=== PATIENT | male | born 1970 | race Caucasian/White ===

== ENCOUNTER 2021-08-28 01:40 | Day surgery (SDC) | payer OTHER, SELFPAY ==
[2021-07-10 14:13] VITALS: BMI 30.4
--- NOTE | 2021-08-28 07:36 | WPDANESEPPF ---
Anes - Initial Pre Proc Eval Procedure: Operation Date: 08/28/21 10:15 Proposed Procedures p Screening Colonoscopy - Parveen Wasserman MD Date/Time: 08/28/21 07:36 Surgeon: Parveen Wasserman MD Pre Op Diagnosis: neoplasm screening Patient Data Age: 51 Gender: M Height: 1.85 m Weight: 104.5 kg Allergies Allergy/AdvReac Type Severity Reaction Status Date / Time No Known Allergies Allergy Verified 08/28/21 09:27 Home Medications Medication Instructions Recorded Confirmed Type aspirin 325 mg tablet 325 mg PO DAILY 05/20/20 08/28/21 History chlorthalidone 25 mg tablet 25 mg PO DAILY 05/20/20 08/28/21 History nebivolol 10 mg tablet (Bystolic) 10 mg PO DAILY 05/20/20 08/28/21 History ramipril 10 mg capsule 10 mg PO DAILY 05/20/20 08/28/21 History sildenafil 100 mg tablet 100 mg PO DAILY PRN sexual 03/06/21 08/28/21 Rx activity #10 tabs cetirizine 10 mg tablet (Zyrtec) 10 mg PO DAILY PRN Sexual Activity 05/22/21 08/28/21 History Patient hx anesthesia problems: none Family hx anesthesia problems: none Results Review: All pre-operative results and documents have been reviewed as part of the pre-operative evaluation. [facility] Past Medical History Medical History (Updated 08/28/21 @ 07:36 by Gurjit Teixeira DO) Atrial fibrillation BMI greater than 30 Changing skin lesion Erectile dysfunction Essential (primary) hypertension Hypertension LAVELLE (obstructive sleep apnea) Screen for colon cancer Screening for lipid disorders Screening for prostate cancer Skin lesion of face Family History Family History Mother Hypertension Grandparent Cerebrovascular accident Family history of lung cancer Family history of malignant neoplasm of brain Social History Social History Smoking status: Never smoker Alcohol intake: current Drinks per week: 4 Substance use type: does not use Living arrangements: other Additional living arrangements comments: with Spiritual care concerns: No Anes - Eval Final PreProcedure Day of Procedure 08/28/21 07:36 Patient weight: obese Heart: regular rate and rhythm Lungs: clear to auscultation Airway: Mallampati scale class 1 Neurological: alert and oriented Last oral intake: >/= 8 hours ASA classification: III Emergent: no Anesthetic plan: proceed Anesthesia type and monitoring: general GIVS and standard monitoring Results Review: All pre-operative results and documents have been reviewed as part of the pre-operative evaluation. Informed Consent: The patient's anesthetic plan and its attendant risks and benefits were discussed with the patient/family/POA. Questions were solicited and answers provided to the satisfaction of the patient/family/POA.
[2021-08-28 09:29] VITALS: BP 136/90; PULSE 62; RESP 18; TEMP 36.4; O2SAT 98; BMI 31.1
[2021-08-28] MEDS: LACTATED RINGERS 1,000 ML 150 ML IV CONT (09:42)
--- NOTE | 2021-08-28 09:56 | PM.IMHP ---
H&P: HPI History of Present Illness Date/Time: 08/28/21 09:56 Chief Complaint: Neoplasia screening. Narrative: This is a 51-year-old white male patient presents for screening colonoscopy. Patient's current weight appetite and bowel movements are normal. He denies abdominal pain. Patient has had no bleeding. Family history noncontributory. He presents today for neoplasia screening colonoscopy. Review of Systems Review of Systems: Review of systems noncontributory. Patient reports a skin cancer removed from his neck several weeks ago. [facility] Past Medical History Medical History (Updated 08/28/21 @ 07:36 by Gurjit Teixeira DO) Atrial fibrillation BMI greater than 30 Changing skin lesion Erectile dysfunction Essential (primary) hypertension Hypertension LAVELLE (obstructive sleep apnea) Screen for colon cancer Screening for lipid disorders Screening for prostate cancer Skin lesion of face Family History Family History Mother Hypertension Grandparent Cerebrovascular accident Family history of lung cancer Family history of malignant neoplasm of brain Social History Social History Smoking status: Never smoker Alcohol intake: current Drinks per week: 4 Substance use type: does not use Living arrangements: other Additional living arrangements comments: with Spiritual care concerns: No Meds Home Medications and Allergies Home Medications Medication Instructions Recorded Confirmed Type aspirin 325 mg tablet 325 mg PO DAILY 05/20/20 08/28/21 History chlorthalidone 25 mg tablet 25 mg PO DAILY 05/20/20 08/28/21 History nebivolol 10 mg tablet (Bystolic) 10 mg PO DAILY 05/20/20 08/28/21 History ramipril 10 mg capsule 10 mg PO DAILY 05/20/20 08/28/21 History sildenafil 100 mg tablet 100 mg PO DAILY PRN sexual 03/06/21 08/28/21 Rx activity #10 tabs cetirizine 10 mg tablet (Zyrtec) 10 mg PO DAILY PRN Sexual Activity 05/22/21 08/28/21 History Allergies Allergy/AdvReac Type Severity Reaction Status Date / Time No Known Allergies Allergy Verified 08/28/21 09:27 Vital Signs Vital Signs - 24 hr 08/28/21 09:29 Temperature 97.6 F Pulse Rate 62 Respiratory Rate 18 Blood Pressure 136/90 Pulse Oximetry 98 Oxygen Delivery Room Air Exam Narrative: Physical exam reveals patient be alert. Vital signs stable. HEENT exam is unremarkable. Patient is anicteric. Lungs are clear to auscultation and percussion. Heart is without murmur or extra sounds. Abdominal exam bowel sounds are present soft nontender with no organomegaly. Digital external rectal exam is normal. Assessment and Plan Assessment and plan (1) Screen for colon cancer: Code(s): Z12.11 - Encounter for screening for malignant neoplasm of colon Status: Acute Assessment and Plan: Patient presents today for screening colonoscopy. Appears to be at average risk for colon polyps.
[2021-08-28 10:24] VITALS: BP 115/80; PULSE 74; RESP 19; O2SAT 94
[2021-08-28 10:34] VITALS: BP 124/83; PULSE 67; RESP 20; O2SAT 98
[2021-08-28 10:44] VITALS: BP 122/85; PULSE 61; RESP 15; O2SAT 97
== END 2021-08-28 10:54 | disposition home or self-care (01) ==
PROVIDERS: PCP Family Medicine; Visit Provider Internal Medicine Gastroenterology
PROC: 0DJD8ZZ Inspection of Lower Intestinal Tract, Via Natural or Artificial Opening Endoscopic (ICD-10-PCS; CPT 45378; principal; 2021-08-28 10:15)
DX: Z12.11 Encounter for screening for malignant neoplasm of colon (principal); D12.5 Benign neoplasm of sigmoid colon; K64.8 Other hemorrhoids; I48.91 Unspecified atrial fibrillation; I10 Essential (primary) hypertension; G47.33 Obstructive sleep apnea (adult) (pediatric); N52.9 Male erectile dysfunction, unspecified; E66.9 Obesity, unspecified; Z68.31 Body mass index [BMI] 31.0-31.9, adult
CPT/HCPCS: 45385; 88305; J2704; J7120

== ENCOUNTER 2022-11-19 08:08 | Outpatient (CLI) | payer OTHER, SELFPAY ==
[2022-11-19 08:56] LABS: Alanine Aminotransferase 40 U/L (6-50); Cholesterol 160 mg/dL (0-200); Creatine Kinase 105 U/L (55-170); HDL Direct 41 mg/dL; Triglycerides 120 mg/dL (<150)
[2022-11-19 09:07] LABS: LDL Cholesterol Direct 84 mg/dL
== END 2022-11-19 08:09 | disposition home or self-care (01) ==
LOC: ANHLAB 08:09
PROVIDERS: PCP Family Medicine; Visit Provider Nurse Practitioner Family
DX: E78.5 Hyperlipidemia, unspecified (principal)
CPT/HCPCS: 36415; 80061; 82550; 84460

== ENCOUNTER 2023-01-14 01:14 | Day surgery (SDC) | payer OTHER, SELFPAY ==
[2023-01-14] VITALS (8 sets, daily range): BP systolic 98–123; BP diastolic 75–104; PULSE 65–132; RESP 10–17; TEMP 36.5; O2SAT 95–100; BMI 31.0
--- NOTE | 2023-01-14 08:45 | ECG_ITS ---
Rate NV QRSd QT QTc P QRS T Severity 125 0 94 305 441 1 60 No Severity Defined ATRIAL FLUTTER/TACHYCARDIA WITH RAPID VENTRICULAR RESPONSE NONSPECIFIC ST & T-WAVE ABNORMALITY- LAT/HIGH LAT LEADS ABNORMAL ECG NO PREVIOUS ECG AVAILABLE FOR COMPARISON Electronically Signed On 01-14-2023 9:38:34 [employer]MITE CONTROL SERVICER by Tee RUST
[2023-01-14 09:13] LABS: Anion Gap 10 mmol/L (8-16); Blood Urea Nitrogen 21 mg/dL (9-20); Calcium 9.7 mg/dL (8.4-10.2); Carbon Dioxide 24 mmol/L (22-30); Chloride 105 mmol/L (98-107); Estimated Glomerular Filt Rate > 60; Glucose 112 mg/dL (65-110); Magnesium 2.1 mg/dL (1.6-2.3); Potassium 3.6 mmol/L (3.4-5.0); Sodium 139 mmol/L (137-145)
--- NOTE | 2023-01-14 10:15 | ECG_ITS ---
Measurements Intervals Indian Rate: 64 P: 9 CA: 178 QRS: -2 QRSD: 100 T: -13 QT: 392 QTc: 407 Interpretive Statements SINUS RHYTHM DELAYED PRECORDIAL R/S TRANSITION CONSIDER INFERIOR INFARCT, AGE INDETERMINATE ABNORMAL ECG COMPARED TO ECG 01/14/2023 08:45:33 SINUS RHYTHM NOW PRESENT Electronically Signed On 01-14-2023 11:32:07 MARKETING SUPPORT SPECIALIST by Tee Cedeno D.O.
--- NOTE | 2023-01-14 10:38 | WPDHPUPDATE1 ---
History and Physical Update Update Date/Time: 01/14/23 10:38 History and Physical has been reviewed, including an updated exam of the patient. There are NO changes in the patient's condition. Risks, benefits, and alternatives have been discussed and questions answered. Patient agrees to proceed with procedure.
--- NOTE | 2023-01-14 10:38 | WPDMODSED ---
Moderate Sedation Note-Pt Data Patient Data Diagnosis: Atrial flutter with rapid ventricular response Present Complaint: Fatigue Brief history and physical update: Patient is a very pleasant 52-year-old male with past medical history significant for persistent atrial fibrillation with recurrence of AFib despite uptitration of Bystolic previously started on Xarelto status post AFib ablation who was referred for outpatient ischemic evaluation found to be in atrial flutter with rapid ventricular response subsequently referred for elective cardioversion in attempt to restore sinus rhythm. Patient has been on systemic anticoagulation to which he attests for least 4 weeks without missing a single dose. Impression: History of persistent atrial fibrillation status post AFib ablation New onset atrial flutter with RVR Obstructive sleep apnea Recommendation: Elective electrical cardioversion in terms restore sinus rhythm Follow-up with electrophysiology for atrial fibrillation and atrial flutter Continue systemic anticoagulation without interruption Continue present medical therapy. Procedure to be performed/Plan: Elective electrical cardioversion Allergies Allergy/AdvReac Type Severity Reaction Status Date / Time No Known Allergies Allergy Verified 01/14/23 09:30 Home Medications Medication Instructions Recorded Confirmed Type chlorthalidone 25 mg tablet 25 mg PO DAILY 05/20/20 01/11/23 History ramipril 10 mg capsule 5 mg PO DAILY 05/20/20 01/11/23 History cetirizine 10 mg tablet (Zyrtec) 10 mg PO DAILY PRN Allergy Symptoms 05/22/21 01/11/23 History sildenafil 100 mg tablet 100 mg PO DAILY PRN sexual 09/07/22 01/11/23 Rx activity #10 tabs rosuvastatin 10 mg tablet 10 mg PO DAILY #90 tabs 12/23/22 01/11/23 Rx Adults Multivitamin 1 tab-cap PO DAILY 01/11/23 01/11/23 History metoprolol tartrate 50 mg tablet 50 mg PO BID 01/11/23 01/11/23 History potassium chloride 20 mEq 20 meq PO DAILY 01/11/23 01/11/23 History tablet,extended release(part/cryst) (Klor-Con M) rivaroxaban 20 mg tablet (Xarelto) 20 mg PO DAILY 01/11/23 01/11/23 History Current Medications: Active Medications Sodium Chloride (Normal Saline Iv) 1,000 mls @ 30 mls/hr IV CONT .Q24H ANT Sedation/Anesthesia: No previous sedation/anesthesia problems (including family history). [facility] Past Medical History Medical History Atrial fibrillation BMI 33.0-33.9,adult BMI greater than 30 Changing skin lesion Erectile dysfunction Essential (primary) hypertension Hypertension LAVELLE (obstructive sleep apnea) Screen for colon cancer Screening for lipid disorders Screening for prostate cancer Skin lesion of face Family History Family History Mother Hypertension Grandparent Cerebrovascular accident Family history of lung cancer Family history of malignant neoplasm of brain Father , cancer of frontal sinus and roof of mouth. No problems noted. Sibling No problems noted. Social History Social History Smoking packs per day: 1 Smoking cigarettes per day: 20.0 Years smoked: 10 Smoking pack-years: 10.00 Smoking status: Former smoker Tobacco type: cigarettes Second hand tobacco smoke exposure: Yes Smoking end date: 02/18/02 Alcohol intake: current Drinks per week: 6 Substance use: never Substance use type: does not use Lack of Transportation: No Lack of Food: Never True Current Housing: I Have Housing Concerned About Future Housing: No Difficulty Paying Gas/Electric Bills: No Difficulty Paying for Meds: No Currently Unemployed: No Education: Master's Degree or Higher Difficulty w/ Childcare or Family Care: No Living arrangements: with family Additional living arrangements comments: with Occupatio
--- NOTE | 2023-01-14 11:01 | P.PCNCVR_ITS ---
Cardioversion Cardioversion Date of procedure: 01/14/23 Procedure: Elective electrical cardioversion Pre-op diagnosis: Atrial flutter with rapid ventricular response Post-op diagnosis: Same Indications: Atrial flutter with rapid ventricular response Description of procedure: Brief history present illness: Patient is a pleasant 52-year-old male with a history of atrial fibrillation status post ablation found to have new onset atrial flutter with RVR referred for elective electrical cardioversion in attempt to restore sinus rhythm. Procedure in detail: After verbal and written informed consent was obtained the patient risks, benefits, and alternatives explained in detail the patient agreed to proceed with the plan of care as outlined above. Patient was evaluated at bedside in [facility]. On examination, neck was supple with normal range of motion, no restrictions to opening of the oral cavity, jaw angle and posterior hypopharynx was clear. Lungs were clear to auscultation. Patient was placed in appropriate 30 to 45 degree angle in a supine position. Patient was monitored throughout the study with telemetry, oxygen saturation, end-tidal CO2 monitoring, blood pressure, heart rate, and respirations. Anterior and posterior defibrillator pads placed in the appropriate positions. After confirmation of adequate sedation electrical cardioversion was carried out without complication. Patient tolerated the procedure well without difficulty. Sedation: Moderate Sedation/Anesthesia administration: Patient denied previous intolerance or complications with anesthesia/sedation. Please see sedation note for documentation of the pre-procedure physical examination. A total of 5mg intravenous Versed and a total of 125mcg intravenous Fentanyl in multiple divided doses was utilized for moderate sedation. Sedation start time was 1041 and end time was 1053 for a total of 12 minutes [id number] intra-procedure time. Sedation was administered by a qualified observer Amanda Oropeza RN under my supervision with intra-procedure [id number] observation and management throughout the entirety of the procedure. There were no other issues or complications and patient tolerated the procedure well and sedation protocol well and I was present for the entirety. Findings: Elective electrical cardioversion: After confirmation of adequate sedation and persistence of atrial flutter with RVR, 150 joules synched biphasic energy x1 was delivered with immediate denominational of sinus rhythm. Twelve lead EKG was obtained postprocedure confirming sinus rhythm. Complications: None Conclusion: Successful denominational of sinus rhythm status post 150 joules synched biphasic energy x1. Recommendation: Continue systemic anticoagulation without interruption particularly for least the next 30 days post cardioversion or until advised.
== END 2023-01-14 12:15 | disposition home or self-care (01) ==
PROVIDERS: PCP Family Medicine; Visit Provider Internal Medicine Cardiovascular Disease
PROC: 5A2204Z Restoration of Cardiac Rhythm, Single (ICD-10-PCS; principal; 2023-01-14 10:00)
DX: I48.92 Unspecified atrial flutter (principal); R94.31 Abnormal electrocardiogram [ECG] [EKG]; I10 Essential (primary) hypertension; G47.33 Obstructive sleep apnea (adult) (pediatric); Z79.01 Long term (current) use of anticoagulants; Z87.891 Personal history of nicotine dependence; Z86.79 Personal history of other diseases of the circulatory system; Z80.1 Family history of malignant neoplasm of trachea, bronchus and lung; Z80.8 Family history of malignant neoplasm of other organs or systems; Z82.49 Family history of ischemic heart disease and other diseases of the circulatory system; E78.5 Hyperlipidemia, unspecified
CPT/HCPCS: 36415; 80048; 83735; 92960; J2250; J3010; J7030

== ENCOUNTER 2023-11-01 07:55 | Outpatient (CLI) | payer OTHER, SELFPAY | END 2023-11-01 07:56 | disposition home or self-care (01) | LOC: ANHAUDIO 07:56 | PROVIDERS: PCP Family Medicine; Visit Provider Family Medicine | DX: H90.42 Sensorineural hearing loss, unilateral, left ear, with unrestricted hearing on the contralateral side (principal) | CPT/HCPCS: 92557; 92567 ==